=== PATIENT | female | born 1935 | race Caucasian/White ===

== ENCOUNTER 2022-05-30 09:58 | Emergency (ER) | payer MEDICARE, BC ==
[2022-05-30] MEDS ORDERED: EPINEPHrine 1 MG/1 ML Amp ONE (10:12)
[2022-05-30 10:21] LABS: PCO2 ARTERIAL,POC 95 mmHg (35-48)
[2022-05-30 10:34] LABS: CHLORIDE,CL 107 mmol/L (98-107); SODIUM,NA 145 mmol/L (136-145)
[2022-05-30 10:35] LABS: ESTIMATED GFR 41 mL/min (>=60)
[2022-05-30 10:38] LABS: PTT,PARTIAL THROMBOPLSTIN TIME 47.2 SEC (20.5-30.9)
[2022-05-30] MEDS ORDERED: EPINEPHrine 1 MG/1 ML Amp IVPUSH ONE (11:20)
[2022-05-30] MEDS ORDERED: EPINEPHrine 1 MG in Sodium Chloride 0.9% 100 ML IV SCH (11:30)
[2022-05-30] MEDS ORDERED: EPINEPHrine 1:10,000 1 MG/10 ML Syringe ONE (11:56)
== END 2022-05-30 10:35 | disposition expired ==
LOC: VM.ED 09:58
DX: I46.9 Cardiac arrest, cause unspecified (principal)
CPT/HCPCS: 36415; 36600; 80048; 82803; 84484; 85025; 85379; 85610; 85730; 92950; 99285-25